=== PATIENT | female | born 1995 | race Hispanic/Latino ===

== ENCOUNTER 2017-01-19 10:34 | Emergency (ER) | payer OTHER ==
[~2017-01-19] VITALS: Ht 157.5 cm; Wt 65.1 kg
[2017-01-19 10:45] VITALS: BP 100/75
[2017-01-19] MEDS ORDERED: ZYRTEC10 M2 PO (12:03)
[2017-01-19] MEDS ORDERED: MUCUS ER600 MG PO (12:03)
[2017-01-19] MEDS ORDERED: FLONASE16 G1 BOTH NARES (12:03)
== END 2017-01-19 12:14 | disposition home or self-care (01) ==
LOC: EME 10:34
DX: J30.2 Other seasonal allergic rhinitis (principal); J02.9 Acute pharyngitis, unspecified; H92.03 Otalgia, bilateral; Z87.891 Personal history of nicotine dependence
CPT/HCPCS: 87651 90; 99281; 99283